=== PATIENT | female | born 1990 | race African-American/Black ===

== ENCOUNTER 2017-10-25 10:59 | Emergency (ER) | payer MEDICAID ==
[~2017-10-25] VITALS: Ht 170.2 cm; Wt 74.8 kg
[2017-10-25 10:59] VITALS: BP 130/71
--- NOTE | 2017-10-25 10:59 | NUR ---
PT A/O X4 . NEG ACUTE SIGNS OF DISTRESS. NEG SOB. PT STATES " I AM DEHYDRATED AND AM TO LAZY TO DRINK WATER." VSS. SAFETY MEASURES IN PLACE.
[2017-10-25 11:47] LABS: BASOPHILS % (AUTO) 0.5 % (0.0-2.0); EOSINOPHILS % (AUTO) 1.2 % (0.0-6.0); HEMATOCRIT 40 % (33-45); HEMOGLOBIN 13.5 g/dL (11.5-14.8); LYMPHOCYTES # (AUTO) 1.4 /CMM (0.8-4.8); LYMPHOCYTES % (AUTO) 23.5 % (20.0-44.0); MEAN CORPUSCULAR HGB CONC 34 g/dl (31.0-36.0); MEAN CORPUSCULAR VOLUME 91 fL (82-100); MONOCYTES # (AUTO) 0.5 /CMM (0.1-1.30); MONOCYTES % (AUTO) 7.6 % (2.0-12.0); NEUTROPHILS # (AUTO) 4.1 /CMM (1.8-8.9); NEUTROPHILS % (AUTO) 67.2 % (43.0-81.0); PLATELET COUNT (AUTO) 270 /CMM (150-450); RDW COEFFICIENT OF VARIATION 12.3 (11.5-15.0); RED BLOOD CELL COUNT(AUTO) 4.36 MIL/uL (4.0-5.2); WHITE BLOOD COUNT (AUTO) 6.1 K/uL (4.3-11.0)
[2017-10-25 11:58] LABS: CALCIUM, SERUM 9.1 mg/dL (8.5-10.1); CREATININE 0.8 mg/dL (0.6-1.3); POTASSIUM 3.5 mmol/L (3.5-5.1)
== END 2017-10-25 12:08 | disposition home or self-care (01) ==
LOC: ER 11:04
DX: R00.8 Other abnormalities of heart beat (principal); E86.0 Dehydration; Z91.040 Latex allergy status
CPT/HCPCS: 36415; 80048; 85025; 99284; A4606; Z7610